=== PATIENT | male | born 1955 | race Caucasian/White ===

== ENCOUNTER 2017-01-25 13:23 | Emergency (ER) | payer BC ==
[~2017-01-25] VITALS: Ht 185.4 cm; Wt 86.0 kg
[2017-01-25 13:27] VITALS: TEMP 36.8; Ht 185.4 cm; Wt 86.0 kg
[2017-01-25] MEDS ORDERED: SODIUM CHLORIDE 0.9% 1000ML 1,000 ML IV STA (13:40)
--- NOTE | 2017-01-25 13:44 | EMERGENCY ROOM VISIT NOTE ---
History First contact with patient: 13:30 Chief Complaint: DIZZY Stated Complaint: DIZZY History of Present Illness The patient is a 61 year old male who presents to the Emergency Room via private vehicle with complaints of "dizziness". The patient states that 2 days ago, he was laying down for bed when he felt a little foggy, and he notes at the bedside started "cartwheeling". He then notes that the bit started to spin. He states that since then he has had off and on dizziness that he describes a sensation as if he was going to pass out. He notes that these are now more frequent. By occupation, he is journeyman electrician pv installer and today while at work he was looking up and developed more dizziness therefore wanted to come here for evaluation over concern that he may fall while working. He has a history of angioplasty in the past which was performed at [facility]. He states he has yearly checkups with Dr. Benitez. At this time he denies any fevers, chills, abdominal pain, chest pain or shortness of breath. He also notes that he removed a tick from him a few days ago. He notes it was on him less than 12 hours. Review of Systems A complete 10-point Review of Systems was discussed with the patient, with pertinent positives and negatives listed in the History of Present Illness. All remaining Review of Systems questions can be considered negative unless otherwise specified. Past Medical/Surgical History Angioplasty Family History Vertigo Social History Smoking Status: Never Smoker Occupation Status: employed Patient is currently journeyman electrician pv installer. Current/Historical Medications Scheduled Meclizine Hcl (Meclizine Hcl), 1 TAB PO DAILY Physical Exam Vital Signs Date Time Temp Pulse Resp B/P (MAP) Pulse Ox O2 Delivery O2 Flow Rate FiO2 01/25/17 19:57 75 18 137/91 99 01/25/17 18:58 76 20 134/98 97 Room Air 01/25/17 16:35 76 20 125/91 98 Room Air 01/25/17 15:57 75 20 134/91 98 Room Air 01/25/17 15:00 75 20 127/96 98 01/25/17 14:07 92 20 138/96 98 107 165/112 101 144/116 01/25/17 13:53 94 01/25/17 13:51 96 Room Air 01/25/17 13:27 36.8 102 20 157/100 97 Room Air Physical Exam VITAL SIGNS - Vital signs and nursing notes were reviewed. Afebrile, hypertensive 157/100, tachycardic at 102 bpm, and is saturating well on room air 97%. GENERAL -61-year-old male appearing his stated age who is in no acute distress. Communicates well with provider and answers questions appropriately. SKIN - Without rashes. HEAD - NC/AT. EYES - PERRL with EOMI bilaterally. Sclera anicteric. Palpebral conjunctiva pink and moist with no injection noted. EARS - No deformities of external structures noted on gross examination bilaterally. No pain elicited with palpation of the tragus bilaterally. External auditory canals without discharge or otorrhea. Tympanic membranes pearly casanova without retraction or bulging. No fluid or purulent material visualized behind the TM. Handle of malleus, umbo, cone of light, pars tensa/ flaccid all easily visualized. NOSE - Midline and without cyanosis. No epistaxis or purulent drainage noted. Septum midline without deviation or septal hematoma noted. MOUTH/OROPHARYNX - Without perioral cyanosis. Buccal mucosa pink and moist and without leukoplakia. Tongue midline with equal elevation of palate bilaterally. No tonsillar hypertrophy, erythema, or exudates noted. Fair dentition noted. NECK - Neck with FROM. Supple to palpation. No lymphadenopathy noted. No nuchal rigidity. LUNGS - Chest wall symmetric without accessory muscle use, intercostals retractions, or central cyanosis. Normal vesicular breath sounds CTA B/L. No wheezes, rales, or rhonchi appreciated. CARDIAC - RRR with S1/S2. No murmur, rubs, or gallops appreciated. EXTREMITIES - No clubbing or peripheral cyanosis. No pretibial edema present. He is neurovascularly intact In the extremities. +5/5 strength noted in UE/LE bilaterally. NEUROLOGIC - Cranial nerves II through XII grossly intact. Sensory intact to light touch throughout. Negative finger to nose. Patellar reflexes +2/4. PSYCH - A&O and cooperates fully with examiner. Pt is very pleasant and interacts well with examiner. Medical Decision & Procedures ER Provider Diagnostic Interpretation: CHEST ONE VIEW PORTABLE HISTORY: Dizziness COMPARISON: Chest 08/30/2010. FINDINGS: The lungs are clear. Cardiac silhouette is normal in size. No pleural effusions. No pneumothorax. IMPRESSION: No acute process. Electronically signed by: Rex Kirk M.D. 01/25/2017 2:10 PM Dictated Date/Time: 01/25/2017 2:[address] CT DOSE: 537.48 mGy.cm HISTORY: Dizziness, hypertensive TECHNIQUE: Multiaxial CT images of the head were performed without the use of intravenous contrast. Automated exposure control was utilized for this study. A dose lowering technique was utilized adhering to the principles of ALARA. Comparison: None. Findings: The paranasal sinuses and mastoid air cells are clear. The calvarium and skull base are intact. The ventricles and sulci are within normal limits. There is no mass, hematoma, midline shift, or acute infarct. Impression: No acute intracranial abnormality. Electronically signed by: Rex Kirk M.D. 01/25/2017 3:45 PM Dictated Date/Time: 01/25/2017 3:42 PM MRI OF THE BRAIN WITHOUT AND WITH IV CONTRAST CLINICAL HISTORY: Persistent dizziness. COMPARISON STUDY: Head CT January 25, 2017. TECHNIQUE: Utilizing a 1.5 Masha magnet and dedicated coil, multiplanar, multiecho imaging of the brain was performed pre and postcontrast administration. IV administration of 8.5 mL of Gadavist contrast was uneventful. FINDINGS: There are no areas of restricted diffusion to suggest acute infarct. No acute intracranial hemorrhage is present. Ventricular system is normal. Basilar cisterns are patent. There are no extra-axial fluid collections. There is a homogeneously enhancing extra-axial lesion overlying the anterior right frontal lobe shown on axial image 11 of . This enhancing mass measures 2.1 x 2.1 x 1 cm. This has similar T2 signal to that of cortex. This is consistent with a meningioma. There are no additional intracranial masses. Flow-voids for the major intracranial vessels are present. Calvarial signal is normal. There are a few suspected small sebaceous cysts within the scalp. Orbits are unremarkable. There is no fluid within the mastoid air cells. No abnormalities are identified within the internal auditory canals on this nondedicated exam. IMPRESSION: 1. No acute intracranial findings. 2. 2.1 x 2.1 x 1 cm homogeneously enhancing extra-axial mass overlying the anterior right frontal lobe consistent with a meningioma. Electronically signed by: Eugene Reich M.D. 01/25/2017 6:16 PM Dictated Date/Time: 01/25/2017 6:09 PM Laboratory Results 01/25/17 14:00 Red Blood Count 5.19, Mean Corpuscular Volume 85.9, Mean Corpuscular Hemoglobin 30.3, Mean Corpuscular Hemoglobin Concent 35.2, Mean Platelet Volume 9.5, Neutrophils (%) (Auto) 59.5, Lymphocytes (%) (Auto) 30.0, Monocytes (%) (Auto) 9.2, Eosinophils (%) (Auto) 0.8, Basophils (%) (Auto) 0.3, Neutrophils # (Auto) 3.87, Lymphocytes # (Auto) 1.95, Monocytes # (Auto) 0.60, Eosinophils # (Auto) 0.05, Basophils # (Auto) 0.02 01/25/17 14:00 Test 01/25/17 14:00 01/25/17 15:30 White Blood Count 6.50 K/uL (4.8-10.8) Red Blood Count 5.19 M/uL (4.7-6.1) Hemoglobin 15.7 g/dL (14.0-18.0) Hematocrit 44.6 % (42-52) Mean Corpuscular Volume 85.9 fL (80-100) Mean Corpuscular Hemoglobin 30.3 pg (25-34) Mean Corpuscular Hemoglobin Concent 35.2 g/dl (32-36) Platelet Count 193 K/uL (130-400) Mean Platelet Volume 9.5 fL (7.4-10.4) Neutrophils (%) (Auto) 59.5 % Lymphocytes (%) (Auto) 30.0 % Monocytes (%) (Auto) 9.2 % Eosinophils (%) (Auto) 0.8 % Basophils (%) (Auto) 0.3 % Neutrophils # (Auto) 3.87 K/uL (1.4-6.5) Lymphocytes # (Auto) 1.95 K/uL (1.2-3.4) Monocytes # (Auto) 0.60 K/uL (0.11-0.59) Eosinophils # (Auto) 0.05 K/uL (0-0.5) Basophils # (Auto) 0.02 K/uL (0-0.2) RDW Standard Deviation 42.6 fL (36.4-46.3) RDW Coefficient of Variation 13.6 % (11.5-14.5) Immature Granulocyte % (Auto) 0.2 % Immature Granulocyte # (Auto) 0.01 K/uL (0.00-0.02) Prothrombin Time 10.0 SECONDS (9.0-12.0) Prothromb Time International Ratio 0.9 (0.9-1.1) Activated Partial Thromboplast Time 25.9 SECONDS (21.0-31.0) Partial Thromboplastin Ratio 1.0 Anion Gap 4.0 mmol/L (3-11) Est Creatinine Clear Calc Drug Dose 112.3 ml/min Estimated GFR () 113.3 Estimated GFR (Non- 97.8 BUN/Creatinine Ratio 23.4 (10-20) Calcium Level 8.9 mg/dl (8.5-10.1) Magnesium Level 2.4 mg/dl (1.8-2.4) Total Bilirubin 0.3 mg/dl (0.2-1) Aspartate Amino Transf (AST/SGOT) 15 U/L (15-37) Alanine Aminotransferase (ALT/SGPT) 30 U/L (12-78) Alkaline Phosphatase 63 U/L (45-117) Troponin I < 0.015 ng/ml (0-0.045) Total Protein 8.2 gm/dl (6.4-8.2) Albumin 3.8 gm/dl (3.4-5.0) Globulin 4.4 gm/dl (2.5-4.0) Albumin/Globulin Ratio 0.9 (0.9-2) Thyroid Stimulating Hormone (TSH) 0.986 uIu/ml (0.300-4.500) Lyme Disease IgG Antibody NEG (NEG) Lyme Disease IgM Antibody NEG (NEG) Urine Color YELLOW Urine Appearance CLEAR (CLEAR) Urine pH 7.5 (4.5-7.5) Urine Specific [place] 1.019 (1.000-1.030) Urine Protein NEG (NEG) Urine Glucose (UA) NEG (NEG) Urine Ketones NEG (NEG) Urine Occult Blood NEG (NEG) Urine Nitrite NEG (NEG) Urine Bilirubin NEG (NEG) Urine Urobilinogen NEG (NEG) Urine Leukocyte Esterase NEG (NEG) Medications Administered Medications (Trade) Dose Ordered Sig/Elise Route Start Time Stop Time Status Last Admin Dose Admin Sodium Chloride 1,000 ml @ 999 mls/hr Q1H1M STAT IV 8/23/17 13:40 01/25/17 14:40 DC 01/25/17 14:14 999 MLS/HR Meclizine HCl (Antivert Tab) 25 mg NOW STAT PO 01/25/17 15:19 01/25/17 15:20 DC 01/25/17 15:26 25 MG Medical Decision Patient was seen and evaluated as above. After obtaining a thorough history and physical examination IV access was initiated, and the above workup was performed. Patient was instructed us today with dizziness. It is most likely vertigo, he was given Antivert and fluids and was feeling slightly better. The decision was made to obtain a CT scan, which revealed no abnormality. Patient did have some persistence of his symptoms, therefore MRI of the brain was pursued. This does reveal a meningioma. I do not suspect this meningioma is causing his symptoms. There is no edema around this area on MRI. Case was thoroughly discussed with the attending physician. Patient's EKG shows no significant change when compared to previous. Chest x-ray unremarkable. CBC reveals no leukocytosis or anemia. Coags normal. CMP reveals a BUN elevated at 19, I believe he is dehydrated. TSH unremarkable. Troponin negative. No evidence of liver failure. Urine is negative. Lyme testing is negative. Patient was reevaluated after the MRI, I was feeling much better I believe this is from the fluids and the Antivert. He was hypertensive on arrival, but his blood pressure has dropped some. He is to follow up regarding this. He notes no history of hypertension. Orthostatics were nondiagnostic. Again I believe this is likely secondary to vertigo and dehydration. He'll be given a short prescription for Antivert. He is to follow-up with his family doctor. He is to return with worsening. I did also discuss this with neurosurgery of [facility] regarding the meningioma. I spoke with Dr. Jiménez regarding the case. He recommends outpatient follow-up. He'll be happy to see the patient. Number was provided. Patient is to follow-up with them by calling their office. He is to return if worsening. He was educated upon worrisome symptoms which to return, had questions answered, and was discharged home. In the evaluation treatment this patient following differential diagnoses were entertained: Vertigo, CVA, mass, among others. Impression Primary Impression: Dizziness Additional Impressions: Vertigo Meningioma Departure Information Dispostion Home / Self-Care Condition GOOD Prescriptions Meclizine Hcl (MECLIZINE HCL) 25 Mg Tab 1 TAB PO DAILY for Dizziness or Vertigo for 30 Days, #30 TAB Prov: Haroldo Baig PA-C 01/25/17 Referrals Leobardo Ramachandran M.D. (PCP) Patient Instructions My [facility] Additional Instructions You were seen in emergency Department for dizziness, which is most like secondary to either dehydration or vertigo. For this reason it is recommended to drink plenty of fluids, stay well hydrated and eat a healthy and well balanced out. Your MRI did show a meningioma, as we discussed. I do recommend follow-up with [facility] neurosurgery. Please call them first thing tomorrow morning. The number is [phone], please explain to them that her case was discussed with Dr. Jiménez. If you have difficulty scheduling this appointment please call back here at [phone]. Please call your family doctor to schedule a follow-up regarding today's visit. Please return to the emergency department with any new/concerning symptoms. I recommended Antivert, which is meclizine to help with your vertigo as needed. 25mg daily, do not exceed more than one per day until you follow up with your family doctor. This was sent to your pharmacy but is also available over the counter. MRI OF THE BRAIN WITHOUT AND WITH IV CONTRAST CLINICAL HISTORY: Persistent dizziness. COMPARISON STUDY: Head CT January 25, 2017. TECHNIQUE: Utilizing a 1.5 Masha magnet and dedicated coil, multiplanar, multiecho imaging of the brain was performed pre and postcontrast administration. IV administration of 8.5 mL of Gadavist contrast was uneventful. FINDINGS: There are no areas of restricted diffusion to suggest acute infarct. No acute intracranial hemorrhage is present. Ventricular system is normal. Basilar cisterns are patent. There are no extra-axial fluid collections. There is a homogeneously enhancing extra-axial lesion overlying the anterior right frontal lobe shown on axial image . This enhancing mass measures 2.1 x 2.1 x 1 cm. This has similar T2 signal to that of cortex. This is consistent with a meningioma. There are no additional intracranial masses. Flow-voids for the major intracranial vessels are present. Calvarial signal is normal. There are a few suspected small sebaceous cysts within the scalp. Orbits are unremarkable. There is no fluid within the mastoid air cells. No abnormalities are identified within the internal auditory canals on this nondedicated exam. IMPRESSION: 1. No acute intracranial findings. 2. 2.1 x 2.1 x 1 cm homogeneously enhancing extra-axial mass overlying the anterior right frontal lobe consistent with a meningioma. Electronically signed by: Eugene Reich M.D. 01/25/2017 6:16 PM Dictated Date/Time: 01/25/2017 6:09 PM Work Instructions Additional Work Instructions: Bhupendra Rosa was seen and evaluated in the emergency department on 01/25/2017. Please excuse his absence from work today (01/25/17) as well as tomorrow (01/26/17) secondary to his diagnosis. He may return to work as long as symptoms do not prohibit. Thank you, Haroldo Baig PA-C. If you have any questions please do not hesitate to call [phone]. Problem Qualifiers
[2017-01-25 13:51] VITALS: O2SAT 96
--- NOTE | 2017-01-25 14:12 | DIAGNOSTIC IMAGING REPORT ---
CHEST ONE VIEW PORTABLE HISTORY: Dizziness COMPARISON: Chest 08/30/2010. FINDINGS: The lungs are clear. Cardiac silhouette is normal in size. No pleural effusions. No pneumothorax. IMPRESSION: No acute process. Electronically signed by: Rex Kirk M.D. 01/25/2017 2:10 PM Dictated Date/Time: 01/25/2017 2:07 PM
[2017-01-25 14:15] LABS: BASO % 0.3 %; BASO ABS # 0.02 K/uL (0-0.2); COMPLETE YES; EOS % 0.8 %; HEMATOCRIT 44.6 % (42-52); IG% 0.2 %; LYMPH ABS # 1.95 K/uL (1.2-3.4); MEAN CELL VOLUME 85.9 fL (80-100); MEAN CORPUSCULAR HEMOGLOBIN 30.3 pg (25-34); MEAN CORPUSCULAR HGB CONC 35.2 g/dl (32-36); MEAN PLATELET VOLUME 9.5 fL (7.4-10.4); MONO % 9.2 %; NEUT % 59.5 %; PLATELET COUNT 193 K/uL (130-400); RED BLOOD COUNT 5.19 M/uL (4.7-6.1)
[2017-01-25 14:20] LABS: INR 0.9 (0.9-1.1)
[2017-01-25 14:32] LABS: ALT/SGPT 30 U/L (12-78); AST/SGOT 15 U/L (15-37); BLOOD UREA NITROGEN 19 mg/dl (7-18); BUN/CREATININE RATIO 23.4 (10-20); CALCIUM 8.9 mg/dl (8.5-10.1); CARBON DIOXIDE 29 mmol/L (21-32); CHLORIDE 105 mmol/L (98-107); GLUCOSE 96 mg/dl (70-99); MAGNESIUM 2.4 mg/dl (1.8-2.4); POTASSIUM 3.8 mmol/L (3.5-5.1); SODIUM 138 mmol/L (136-145)
[2017-01-25 14:43] LABS: ALB/GLOB RATIO 0.9 (0.9-2); ALKALINE PHOSPHATASE 63 U/L (45-117); THYROID STIMULATING HORMONE 0.986 uIu/ml (0.300-4.500)
[2017-01-25 15:07] LABS: LYME DISEASE AB IGG NEG (NEG); LYME DISEASE AB IGM NEG (NEG)
[2017-01-25] MEDS ORDERED: MECLIZINE HCL 25 MG TAB PO STA (15:19)
--- NOTE | 2017-01-25 15:47 | DIAGNOSTIC IMAGING REPORT ---
HEAD CT NONCONTRAST CT DOSE: 537.48 mGy.cm HISTORY: Dizziness, hypertensive TECHNIQUE: Multiaxial CT images of the head were performed without the use of intravenous contrast. Automated exposure control was utilized for this study. A dose lowering technique was utilized adhering to the principles of ALARA. Comparison: None. Findings: The paranasal sinuses and mastoid air cells are clear. The calvarium and skull base are intact. The ventricles and sulci are within normal limits. There is no mass, hematoma, midline shift, or acute infarct. Impression: No acute intracranial abnormality. Electronically signed by: Rex Kirk M.D. 01/25/2017 3:45 PM Dictated Date/Time: 01/25/2017 3:42 PM
[2017-01-25 15:59] LABS: URINE APPEARANCE CLEAR (CLEAR); URINE BILIRUBIN NEG (NEG); URINE COLOR YELLOW; URINE NITRITE NEG (NEG); URINE PH 7.5 (4.5-7.5); URINE SPECIFIC GRAVITY 1.019 (1.000-1.030); UROBILINOGEN NEG (NEG); ZZUR CULT IF INDIC CLEAN CATCH NO
[2017-01-25 16:00] LABS: MANUAL MICROSCOPIC REQUIRED? NO; REVIEW REQ? NO
--- NOTE | 2017-01-25 17:15 | EMERGENCY ROOM VISIT NOTE ---
ED Visit Note First contact with patient: 13:30 HPI: Intermittant dizziness/vertigo x 3 days PE: AFVSS, NAD NC/AT RRR, no murmurs CTAB Abd soft NT/ND Ext: no edema, erythema Neuro: grossly intact Plan: CT negative. MRI ordered to r/o central etiology. Negative for CVA but with incidental frontal meningioma. CHRIS d/w Danie LONDONO who will f/u with patient. Sx resolved after tx in ED. d/c'd per instructions. I reviewed the patient's past medical history, medications, and visit nursing notes. I discussed the case with the physician licensed nursing assistant, examined the patient, and agree with the findings and plan as documented in the physician assistants note.
--- NOTE | 2017-01-25 17:23 | DIAGNOSTIC IMAGING REPORT ---
ORBIT RADIOGRAPHS 3 VIEWS HISTORY: pre-MRI screening. COMPARISON: None. FINDINGS: There are no radiopaque foreign bodies identified within the orbits. IMPRESSION: No radiopaque foreign bodies identified within the orbits. Electronically signed by: Eugene Reich M.D. 01/25/2017 5:22 PM Dictated Date/Time: 01/25/2017 5:22 PM
[2017-01-25] MEDS ORDERED: GADAVIST IV PRN (18:00)
--- NOTE | 2017-01-25 18:17 | DIAGNOSTIC IMAGING REPORT ---
MRI OF THE BRAIN WITHOUT AND WITH IV CONTRAST CLINICAL HISTORY: Persistent dizziness. COMPARISON STUDY: Head CT January 25, 2017. TECHNIQUE: Utilizing a 1.5 Masha magnet and dedicated coil, multiplanar, multiecho imaging of the brain was performed pre and postcontrast administration. IV administration of 8.5 mL of Gadavist contrast was uneventful. FINDINGS: There are no areas of restricted diffusion to suggest acute infarct. No acute intracranial hemorrhage is present. Ventricular system is normal. Basilar cisterns are patent. There are no extra-axial fluid collections. There is a homogeneously enhancing extra-axial lesion overlying the anterior right frontal lobe shown on axial image 11 . This enhancing mass measures 2.1 x 2.1 x 1 cm. This has similar T2 signal to that of cortex. This is consistent with a meningioma. There are no additional intracranial masses. Flow-voids for the major intracranial vessels are present. Calvarial signal is normal. There are a few suspected small sebaceous cysts within the scalp. Orbits are unremarkable. There is no fluid within the mastoid air cells. No abnormalities are identified within the internal auditory canals on this nondedicated exam. IMPRESSION: 1. No acute intracranial findings. 2. 2.1 x 2.1 x 1 cm homogeneously enhancing extra-axial mass overlying the anterior right frontal lobe consistent with a meningioma. Electronically signed by: Eugene Reich M.D. 01/25/2017 6:16 PM Dictated Date/Time: 01/25/2017 6:09 PM
[2017-01-25] MEDS ORDERED: MECL1TAB42 PO (19:48)
[2017-01-25 19:57] VITALS: BP 137/91; PULSE 75; O2SAT 99
== END 2017-01-25 19:59 | disposition home or self-care (01) ==
LOC: C.EDB 13:24
DX: R42 Dizziness and giddiness (principal); D32.9 Benign neoplasm of meninges, unspecified